=== PATIENT | male | born 1955 ===

== ENCOUNTER 2023-02-12 10:59 | Emergency (ER) | payer MEDICARE ==
[~2023-02-12] VITALS: Ht 170.2 cm; Wt 65.9 kg
[2023-02-12 11:09] VITALS: TEMP 98
[2023-02-12] MEDS ORDERED: LISI-893 PO (11:15)
[2023-02-12] MEDS ORDERED: METF-1185 PO (11:15)
[2023-02-12 11:17] VITALS: BP 124/64; PULSE 79; RESP 15
[2023-02-12] MEDS ORDERED: DUTA0.5C38 PO (11:38)
[2023-02-12] MEDS ORDERED: ATOR10TA PO (11:38)
[2023-02-12] MEDS ORDERED: EMPA10TA3 PO (11:38)
[2023-02-12] MEDS ORDERED: ACET-2080 PO (12:32)
[2023-02-12] MEDS ORDERED: IBUP-1554 PO (12:32)
[2023-02-12] MEDS ORDERED: CIPR500T10 PO (12:32)
== END 2023-02-12 12:52 | disposition home or self-care (01) ==
LOC: EMS 11:02
DX: N50.812 Left testicular pain (principal); N50.811 Right testicular pain; E11.65 Type 2 diabetes mellitus with hyperglycemia; Z85.038 Personal history of other malignant neoplasm of large intestine; I10 Essential (primary) hypertension; Z98.890 Other specified postprocedural states
CPT/HCPCS: 76870; 82962; 99284